=== PATIENT | male | born 1980 | race Caucasian/White ===

== ENCOUNTER 2024-10-09 12:56 | Emergency (ER) | payer OTHER ==
[2024-10-09] MEDS ORDERED: Dexamethasone 10 MG/ML VIAL ONE (13:47)
[2024-10-09] MEDS ORDERED: Ketorolac Tromethamine 30 MG (1 mL) VIAL ONE (13:48)
[2024-10-09 15:13] LABS: #Basophils 0.05 10x3/uL (0.0-0.2); #Eosinophils 0.15 10x3/uL (0.0-0.7); #Monocytes 0.72 10x3/uL (0.11-0.59); #Neutrophils 7.47 10x3/uL (1.40-6.50); %Basophils 0.4 % (0.0-1.0); %Eosinophils 1.3 % (0.0-10.0); %Lymphocytes 24.6 % (21.0-51.0); %Monocytes 6.4 % (0.0-10.0); %Neutrophils 66.9 % (42.0-75.0); Hematocrit 43.6 % (42.0-52.0); Hemoglobin 15.5 g/dL (14.0-18.0); Mean Corpuscular Hemoglobin 34.4 pg (27.0-31.0); Mean Corpuscular Volume 96.9 fL (78.0-98.0); Platelet Count 293 10x3/uL (130-400); Red Blood Cell (RBC) Count 4.50 mill/uL (4.70-6.10); White Blood Cell (WBC) Count 11.19 10x3/uL (4.8-10.8)
[2024-10-09 15:30] LABS: INR-International Normal Ratio 0.9; Prothrombin Time 12.3 sec (12.0-14.7)
[2024-10-09 15:31] LABS: PTT 24.7 sec (22.9-36.1)
[2024-10-09 15:45] LABS: ALT (SGPT) 38 U/L (Less than 45); AST (SGOT) 20 U/L (11-34); Albumin 3.8 g/dL (3.1-4.5); Alkaline Phosphatase 114 U/L (40-110); Anion Gap 17 mmol/L (10-20); BUN (Urea Nitrogen) 9 mg/dL (8.9-20.6); Bilirubin, Total 0.2 mg/dL (0.3-1.2); Calc. Creatinine Clearance 0 mL/min (70-130); Calcium 8.7 mg/dL (7.8-10.44); Carbon Dioxide 20 mmol/L (22-29); Chloride 99 mmol/L (98-107); Globulin 3.6 g/dL (2.4-3.5); Glucose 94 mg/dL (70-105); Potassium 3.8 mmol/L (3.5-5.1); Sodium 132 mmol/L (136-145)
== END 2024-10-09 17:14 | disposition home or self-care (01) ==
LOC: ERS 12:56
DX: M51.360 Other intervertebral disc degeneration, lumbar region with discogenic back pain only (principal); M51.27 Other intervertebral disc displacement, lumbosacral region; M48.061 Spinal stenosis, lumbar region without neurogenic claudication; M47.816 Spondylosis without myelopathy or radiculopathy, lumbar region; F17.210 Nicotine dependence, cigarettes, uncomplicated
CPT/HCPCS: 72100; 72148; 80053; 85025; 85610; 85730; 93005; 96374; 96375; J1100; J1885; J2060; J2270

== ENCOUNTER 2024-10-14 14:17 | Emergency (ER) | payer SELFPAY | END 2024-10-14 16:47 | disposition left against medical advice (07) | LOC: ERS 14:17 | DX: Z53.21 Procedure and treatment not carried out due to patient leaving prior to being seen by health care provider (principal) ==

== ENCOUNTER 2024-11-10 20:45 | Inpatient (IN) | payer OTHER ==
[~2024-11-10 20:45] MED LIST: Iopamidol-370 76% 500 ML MDV (1 ML CHARGE) ONE
[2024-11-10] MEDS ORDERED: Ondansetron PF 4 MG/2 ML Vial ONE (21:48)
[2024-11-10 22:07] LABS: ALT (SGPT) 47 U/L (Less than 45); AST (SGOT) 74 U/L (11-34); Albumin 3.4 g/dL (3.1-4.5); Alkaline Phosphatase 143 U/L (40-110); Anion Gap 21 mmol/L (10-20); BUN (Urea Nitrogen) 17 mg/dL (8.9-20.6); Bilirubin, Total 2.5 mg/dL (0.3-1.2); Calc. Creatinine Clearance 0 mL/min (70-130); Calcium 8.7 mg/dL (7.8-10.44); Carbon Dioxide 21 mmol/L (22-29); Chloride 91 mmol/L (98-107); Globulin 3.3 g/dL (2.4-3.5); Glucose 145 mg/dL (70-105); Lipase 88 U/L (8-78); Potassium 3.3 mmol/L (3.5-5.1); Sodium 130 mmol/L (136-145)
[2024-11-10 22:11] LABS: #Basophils 0.03 10x3/uL (0.0-0.2); #Eosinophils Less than 0.03 10x3/uL (0.0-0.7); #Monocytes 0.72 10x3/uL (0.11-0.59); #Neutrophils 12.05 10x3/uL (1.40-6.50); %Basophils 0.2 % (0.0-1.0); %Eosinophils 0.1 % (0.0-10.0); %Lymphocytes 8.1 % (21.0-51.0); %Monocytes 5.1 % (0.0-10.0); %Neutrophils 85.9 % (42.0-75.0); Hematocrit 41.2 % (42.0-52.0); Hemoglobin 15.1 g/dL (14.0-18.0); Mean Corpuscular Hemoglobin 34.1 pg (27.0-31.0); Mean Corpuscular Volume 93.0 fL (78.0-98.0); Platelet Count 165 10x3/uL (130-400); Red Blood Cell (RBC) Count 4.43 mill/uL (4.70-6.10); White Blood Cell (WBC) Count 14.03 10x3/uL (4.8-10.8)
[2024-11-10 23:36] LABS: CAUTI Indications for Culture < 2yrs of age; Glucose, Urine (Dipstick) Normal (Negative); Leukocyte Negative Leu/uL (Negative); Protein, Urine (Dipstick) Negative (Neg-Trace); RBC/HPF 0-3 HPF (0-3); Specific Gravity, Urine 1.011 (1.002-1.036); WBC/HPF 0-3 HPF (0-3)
[2024-11-10 23:38] LABS: Bacteria/HPF 1+ HPF (None Seen)
[2024-11-10 23:39] LABS: Urine Culture Reflex Yes Yes
[2024-11-11] MEDS ORDERED: HYDROmorphone 0.5 MG/0.5 ML SYRINGE ONE ×2 (00:52→04:01)
[2024-11-11] MEDS ORDERED: Ondansetron PF 4 MG/2 ML Vial IVP PRN (04:34)
[2024-11-11] MEDS ORDERED: Electrolyte Replacement Protocol 1 EACH FS SCH (04:45)
[2024-11-11 04:46] VITALS: BMI 26.8
[2024-11-11] MEDS: Folic Acid 1 MG TAB PO SCH (09:37)
[2024-11-11] MEDS: Multivit, Therapeutic 1 TAB PO SCH (09:37)
[2024-11-11] MEDS: Enoxaparin 40 MG (0.4 mL) SYRINGE SC SCH (09:39)
[2024-11-11] MEDS: Potassium Chloride 20 MEQ in Premix 1 BAG IVPB SCH (10:02)
[2024-11-11 11:08] LABS: Magnesium 1.2 mg/dL (1.6-2.6)
[2024-11-11] MEDS: Magnesium Sulfate In Water 4 GM in Premix 1 BAG IVPB SCH (13:52)
[2024-11-11] MEDS ORDERED: Metoprolol Tartrate 5 MG (5 mL) VIAL IVP PRN (15:39)
[2024-11-12] MEDS: Acetaminophen 325 MG TAB PO PRN (02:03)
[2024-11-12 05:21] LABS: #Basophils Less than 0.03 10x3/uL (0.0-0.2); #Eosinophils 0.08 10x3/uL (0.0-0.7); #Monocytes 0.67 10x3/uL (0.11-0.59); #Neutrophils 10.88 10x3/uL (1.40-6.50); %Basophils 0.2 % (0.0-1.0); %Eosinophils 0.6 % (0.0-10.0); %Lymphocytes 9.8 % (21.0-51.0); %Monocytes 5.1 % (0.0-10.0); %Neutrophils 83.2 % (42.0-75.0); Hematocrit 30.8 % (42.0-52.0); Hemoglobin 10.7 g/dL (14.0-18.0); Mean Corpuscular Hemoglobin 34.1 pg (27.0-31.0); Mean Corpuscular Volume 98.1 fL (78.0-98.0); Platelet Count 106 10x3/uL (130-400); Red Blood Cell (RBC) Count 3.14 mill/uL (4.70-6.10); White Blood Cell (WBC) Count 13.08 10x3/uL (4.8-10.8)
[2024-11-12 05:45] LABS: Anion Gap 14 mmol/L (10-20); BUN (Urea Nitrogen) 9 mg/dL (8.9-20.6); Calc. Creatinine Clearance 180 mL/min (70-130); Calcium 8.0 mg/dL (7.8-10.44); Carbon Dioxide 22 mmol/L (22-29); Chloride 100 mmol/L (98-107); Glucose 73 mg/dL (70-105); Magnesium 2.0 mg/dL (1.6-2.6); Potassium 3.6 mmol/L (3.5-5.1); Sodium 132 mmol/L (136-145)
[2024-11-12 05:46] LABS: ALT (SGPT) 26 U/L (Less than 45); AST (SGOT) 44 U/L (11-34); Albumin 2.2 g/dL (3.1-4.5); Alkaline Phosphatase 102 U/L (40-110); Bilirubin, Direct 0.6 mg/dL (0.1-0.3); Bilirubin, Total 1.2 mg/dL (0.3-1.2)
[2024-11-12] MEDS: Magnesium 2 GM/50 ML(in water) 2 GM in Premix 1 BAG IVPB SCH (10:30)
[2024-11-12 11:11] VITALS: BMI 26.8
[2024-11-12] MEDS: HYDROcodone/Acetaminophen 5/325 mg Tablet PO PRN (16:44)
[2024-11-13 06:13] LABS: Hematocrit 27.2 % (42.0-52.0); Hemoglobin 9.4 g/dL (14.0-18.0); Mean Corpuscular Hemoglobin 34.6 pg (27.0-31.0); Mean Corpuscular Volume 100.0 fL (78.0-98.0); Platelet Count 104 10x3/uL (130-400); Red Blood Cell (RBC) Count 2.72 mill/uL (4.70-6.10); White Blood Cell (WBC) Count 10.81 10x3/uL (4.8-10.8)
[2024-11-13] MEDS: Cyanocobalamin (Vitamin B-12) 1,000 MCG TAB PO SCH (09:08)
[2024-11-13 13:58] VITALS: BP 146/88; TEMP 98.8
[2024-11-14] MEDS ORDERED: PNEUMOC 20-VAL CONJ-DIP CRM/PF 0.5 ML SYRINGE IM ONE (09:00)
[2024-11-14] MEDS ORDERED: Thiamine 100 MG TAB PO SCH (09:00)
== END 2024-11-13 13:55 | disposition home or self-care (01) | DRG 439 ==
LOC: ERS 20:45 → MSONC 11-11 03:19
PROVIDERS: ADMIT Internal Medicine; ATTEND Student in an Organized Health Care Education/Training Program
DX: K85.91 Acute pancreatitis with uninfected necrosis, unspecified (principal); E87.1 Hypo-osmolality and hyponatremia; I10 Essential (primary) hypertension; E03.9 Hypothyroidism, unspecified; M41.9 Scoliosis, unspecified; E87.6 Hypokalemia; F17.200 Nicotine dependence, unspecified, uncomplicated; K76.0 Fatty (change of) liver, not elsewhere classified
CPT/HCPCS: 36415; 36416; 74177; 74181; 76705; 80048; 80053; 80076; 81001; 83690; 83735; 84443; 85025; 85027; 87086; 93005; 96361; 96365; 96375; 96376; J1171; J1650; J2270; J2272; J2405; J2543; J3411; J3475; J3480; J7030; Q9967; S8037